=== PATIENT | female | born 1965 | race Caucasian/White ===

== ENCOUNTER 2016-05-27 13:54 | Emergency (ER) | payer MEDICAID | END 2016-05-27 15:08 | disposition home or self-care (01) | DX: S63.502A Unspecified sprain of left wrist, initial encounter (principal); S60.222A Contusion of left hand, initial encounter; W19.XXXA Unspecified fall, initial encounter; Y93.51 Activity, roller skating (inline) and skateboarding; F17.200 Nicotine dependence, unspecified, uncomplicated ==

== ENCOUNTER 2016-06-12 12:52 | Outpatient (CLI) | payer MEDICAID | END 2016-06-12 12:53 | disposition home or self-care (01) | DX: Z12.31 Encounter for screening mammogram for malignant neoplasm of breast (principal); R92.8 Other abnormal and inconclusive findings on diagnostic imaging of breast; Z80.3 Family history of malignant neoplasm of breast ==

== ENCOUNTER 2016-07-04 13:04 | Outpatient (CLI) | payer MEDICAID | END 2016-07-04 13:05 | disposition home or self-care (01) | DX: N63 Unspecified lump in breast (principal) ==

== ENCOUNTER 2016-07-11 11:28 | Outpatient (CLI) | payer MEDICAID ==
[2016-07-11] MEDS ORDERED: BUPIVACAINE 0.5%-EPI 1:200000 PF 30 ML VIAL SUBQ ONE (15:01)
[2016-07-11] MEDS ORDERED: BUFFERED LIDOCAINE 10 ML SYRINGE IU ONE (15:01)
== END 2016-07-11 11:29 | disposition home or self-care (01) ==
DX: C50.211 Malignant neoplasm of upper-inner quadrant of right female breast (principal); Z17.0 Estrogen receptor positive status [ER+]

== ENCOUNTER 2016-08-08 12:56 | Outpatient (CLI) | payer MEDICAID ==
[2016-08-08] MEDS ORDERED: GADOBUTROL 10 MMOL/10 ML SYRINGE IV ONE (13:53)
--- NOTE | 2016-08-08 15:47 | MRI Report ---
MRI OF THE BILATERAL BREASTS WITH AND WITHOUT CONTRAST: 08/08/2016 CLINICAL INDICATION: A 51-year-old with recent diagnosis of right breast cancer, presurgical planning . TECHNIQUE: Using a dedicated breast coil, axial precontrast STIR, T1, dynamic postcontrast axial 3D i mages, axial 3D high resolution images, and postcontrast diffusion-weighted images were obtained. 7 m L of Gadavist was administered intravenously. Postprocessing with dynamic contrast enhancement analys is and multiplanar reformations were performed with Artsicle. FINDINGS: The breasts demonstrate minimal stippled background parenchymal enhancement. RIGHT BREAST: The biopsy-proven breast cancer in the right upper inner quadrant is seen. It demonstra maryana rapid enhancement with washout kinetics. The abnormal enhancing mass measures 1.4 x 0.9 x 1.1 cm. There is no evidence of skin, nipple, or chest wall involvement. LEFT BREAST: No abnormal enhancement or mass is appreciated in the left breast. The axillary lymph nodes appear morphologically normal bilaterally. IMPRESSION: BIOPSY-PROVEN RIGHT BREAST CANCER, WITHOUT EVIDENCE OF MULTIFOCAL OR MULTICENTRIC DISEAS E. NO EVIDENCE OF SKIN, NIPPLE, OR CHEST WALL INVOLVEMENT. RECOMMENDATION: CONTINUED SURGICAL MANAGEMENT. BIRADS CATEGORY 6-KNOWN MALIGNANCY. The patient has been instructed to obtain results from Dr. Rob in 5 business days. COMMENT: Breast MRI is a highly sensitive examination, and has a cancer detection threshold down to a pproximately 5 mm; however, it only has moderate specificity. Although breast MRI has a high negative predicted value, appropriate clinical and mammographic followup are always necessary. MRI may miss l ess angiogenic tumors; therefore, it should not be used to avoid a biopsy which is otherwise clinical ly indicated. Normal appearing lymph nodes may contain microscopic tumor. Due to prone positioning, t adriana described location of findings may differ from other modalities. JOB #: [id number] EXT JOB #:[id number]
== END 2016-08-08 12:57 | disposition home or self-care (01) ==
LOC: DI 12:56
PROVIDERS: ATTEND Surgery
DX: C50.211 Malignant neoplasm of upper-inner quadrant of right female breast (principal)
CPT/HCPCS: 77059; A9585

== ENCOUNTER 2016-09-10 08:24 | Day surgery (SDC) | payer MEDICAID ==
[~2016-09-10 08:24] MED LIST: ceFAZolin 2 GM/50 ML 50 ML IV ONE
[2016-09-10] MEDS ORDERED: LACTATED RINGERS 1,000 ML IV ONE (08:42)
[2016-09-10] MEDS ORDERED: NEOSTIGMINE 1 MG/1 ML 10 ML MDV IVP ONE (11:30)
[2016-09-10] MEDS ORDERED: ONDANSETRON 4 MG/2 ML VIAL IVP ONE (11:30)
[2016-09-10] MEDS ORDERED: PROPOFOL 200 MG/20 ML VIAL IVP ONE (11:30)
[2016-09-10] MEDS ORDERED: fentaNYL 100 MCG/2 ML VIAL IVP ONE (11:30)
[2016-09-10] MEDS ORDERED: ACETAMINOPHEN 1,000 MG/100 ML VIAL IV ONE (11:30)
[2016-09-10] MEDS ORDERED: DEXAMETHASONE 4 MG/ML VIAL IVP ONE (11:30)
[2016-09-10] MEDS ORDERED: LIDOCAINE-PF 2% 10 ML AMP SUBQ ONE (11:30)
[2016-09-10] MEDS ORDERED: MIDAZOLAM 2 MG/2 ML VIAL IVP ONE (11:30)
[2016-09-10] MEDS ORDERED: BUPIVACAINE 0.5% PF 30 ML VIAL SUBQ ONE ×2 (11:51)
--- NOTE | 2016-09-10 11:59 | Nuclear Medicine Report ---
RIGHT BREAST INJECTION FOR SENTINEL NODE: 09/10/2016 CLINICAL INDICATION: Right breast cancer. FINDINGS: A total of 1.3 mCi of technetium-99m filtered sulfur colloid in 4 mL buffered lidocaine wa s injected intradermally into the right areola. Anterior imaging demonstrates injection site activit y. No definite axillary uptake is seen. Findings discussed with Dr. Rob on 09/10/2016. IMPRESSION: SULFUR COLLOID INJECTED FOR SENTINEL LYMPH NODE IDENTIFICATION. NO DEFINITE AXILLARY AC TIVITY IS APPRECIATED ON ANTERIOR IMAGING. JOB #: [id number] EXT JOB #:[id number]
[2016-09-10] MEDS ORDERED: KETOROLAC 15 MG/ML VIAL ONE (13:04)
[2016-09-10] MEDS ORDERED: BUPIVACAINE 0.5%-EPI 1:200000 PF 30 ML VIAL SUBQ ONE ×2 (13:15)
[2016-09-10] MEDS: HYDROmorphone 1 MG/ML SYRINGE ONE ×2 (13:15→13:27)
[2016-09-10] MEDS ORDERED: BUFFERED LIDOCAINE 10 ML SYRINGE IU ONE ×2 (13:15)
[2016-09-10 14:14] VITALS: BP 110/63
--- NOTE | 2016-09-10 19:44 | Mammography Report ---
REVISED: THIS REPORT WAS ORIGINALLY SIGNED ON 09/11/2016 @ 0812. ORDERS LINKED ON 09/23/2016. MAMMOGRAPHICALLY GUIDED WIRE LOCALIZATION RIGHT BREAST MASS AND MARKER: 2016 CLINICAL INDICATION: Target nodule in the right upper-inner posterior breast, biopsy proven breast cancer. Informed consent was obtained. Using standard aseptic technique, both 1% buffered lidocaine and Sensorcaine were injected into the right breast for local anesthesia. Under mammographic guidance, a 5 cm Hawarden wire and needle were placed at the site of concern. Two mammographic views were obtained to confirm the position of the wire in relation to the target lesion. The wire was secured and the patient was sent to the operating room in stable condition. SPECIMEN RADIOGRAPH: A magnified view of the breast biopsy specimen demonstrates the mass, marker, and Hawarden wire are included in the specimen, with the mass epicenter at G4. Dr. Rob was informed by telephone. IMPRESSION: RIGHT MAMMOGRAPHICALLY GUIDED WIRE LOCALIZATION. PATHOLOGY RESULTS PENDING. JOB #: [id number] EXT JOB #: [id number] SUZAN
--- NOTE | 2016-09-11 02:36 | OPERATIVE REPORT ---
DATE OF SURGERY: 09/10/2016 00:00:00 TIME: 1300 hours. PREOPERATIVE DIAGNOSIS: Right breast cancer. POSTOPERATIVE DIAGNOSIS: Right breast cancer. PROCEDURE: Right lumpectomy with preoperative needle localization and right axillary sentinel lymph node biopsy. SURGEON: Paul Rob MD ANESTHESIA: Oscar Hastings CRNA (general via LMA) plus 30 mL of 0.5% Marcaine. COMPLICATIONS: None. ESTIMATED BLOOD LOSS: Less than 20 mL. FLUIDS: 1000 mL of crystalloid. SPECIMEN REMOVED: Right sentinel lymph node; and separately the right localized breast lesion marked with a short stitch superiorly, long stitch laterally, and a double stitch deep. DETAILS OF PROCEDURE: After informed consent was obtained detailing all the risks of infection, blee ding with all its risks including transfusion, nerve injury, and , the patient was brought to [facility] operative suite and placed supine on the operating room table. Preoperatively she had the radioact krystle tracer, as well as needle localization performed by Dr. Shaw. I reviewed the results with Dr. Shaw preoperatively. The wire localization went as expected and well. The injection of the radi otracer did not show activity in the axilla, per Dr. Shaw. With the patient on the operating room table, she received preoperative antibiotics for prophylaxis a gainst surgical infection. The patient had TEDs and Venodynes placed for prophylaxis against deep karlee ous thrombosis. General anesthesia via an LMA was induced by Oscar Hastings CRNA, and Oscar Hastings CRNA, provided anesthesia care for the entirety of the case. The patient was then prepped and draped in the usual standard manner, taking care to ensure that there no pressure points. At this point in time, a time-in was done that confirmed the patient's name, date of , medical r ecord number, allergies, medications, and that we had the personnel and equipment required to perform the procedure. We also confirmed the procedure to be performed, as well as all the safety procedure s that we had done preoperatively. With the agreement of everyone in the room, the operation was all owed to proceed. The patient's right chest wall was examined for radioactive activity starting at the nipple, and a br ief count was noted to be 23,000. Internal mammary counts were between 80 and 130, clavicular counts were between 80 and 160. After the nipple, the activity was highest in the right axilla. In the ar ea of the greatest activity, a transverse incision was made, and dissection was carried out down to t he area of greatest activity using continual monitoring to ensure that the dissection went as expecte d. The axillary tissue itself was unrevealing of any lymphatic tissue that I could see or palpate; h owever, it was the area of greatest activity, and a 10-second in vivo count came back at 19,225. Thi s area was excised using a combination of Metzenbaum scissors, as well as Bovie electrocautery. Once this was removed from the axilla, the axilla was then examined, and the highest count that could be obtained in the axilla with the excision was 200; most counts were between 80 and 120. The ex vivo 1 0-second count of this tissue revealed activity at 31,818. Again, I examined this tissue extensively and could not palpate or see any lymphatic tissue. As a result, one lymph node or many lymph nodes could have been excised in this tissue. Meticulous hemostasis was noted to be present. The subcutan eous tissues were approximated using 3-0 Vicryl in an interrupted fashion. The skin was approximated using 4-0 Monocryl in a running subcuticular fashion. Attention was then directed to the right breast. Again the wire had been checked by me in the presen ce of Dr. Shaw preoperatively. Gentle movement of the needle allowed me to plan the surgical inci everardo at the areolar-skin border on the superior aspect of the patient's nipple. A curvilinear incisi on was made there, and dissection was carried out down to the needle and wire using a combination of Metzenbaum scissors, as well as Bovie electrocautery. The needle was grasped with an Allis, and diss ection around this was commenced, attempting to get approximately a centimeter of tissue around the c entral portion of the needle tip. The needle was removed, leaving the wire in place. The excision w as completed. Meticulous hemostasis was obtained using Bovie electrocautery. The wound was copiousl y flushed using sterile water, and there was no blush with any blood or active bleeding. Again, the s ubcutaneous tissues were approximated using 3-0 Vicryl suture. Examination of the excision revealed the pectoralis major muscle on the posterior aspect and the subcutaneous skin on the anterior aspect. Once the subcutaneous tissues were approximated, the skin was approximated using a 4-0 Monocryl in a running subcuticular fashion. Both incision sites were injected using 0.5% Marcaine with the majorit y of it being placed in the breast. The skin was cleaned of its prep. Mastisol and Steri-Strips wer e applied, and the patient subsequently had the LMA removed and was taken to the recovery room in goo d and stable condition, having tolerated the procedure well. JOB #: [id number] EXT JOB #:[id number]
== END 2016-09-10 08:25 | disposition home or self-care (01) ==
LOC: SDS 08:24
PROVIDERS: ATTEND Surgery
PROC: C71L1ZZ Planar Nuclear Medicine Imaging of Upper Chest Lymphatics using Technetium 99m (Tc-99m) (ICD-10-PCS; 2016-09-10)
PROC: 0HBT0ZZ Excision of Right Breast, Open Approach (ICD-10-PCS; principal; 2016-09-10 11:30)
PROC: 07B50ZX Excision of Right Axillary Lymphatic, Open Approach, Diagnostic (ICD-10-PCS; 2016-09-10 11:30)
DX: D05.91 Unspecified type of carcinoma in situ of right breast (principal); F41.9 Anxiety disorder, unspecified; F43.10 Post-traumatic stress disorder, unspecified; F31.9 Bipolar disorder, unspecified; M19.90 Unspecified osteoarthritis, unspecified site; M51.36 Other intervertebral disc degeneration, lumbar region; F17.210 Nicotine dependence, cigarettes, uncomplicated; Z79.1 Long term (current) use of non-steroidal anti-inflammatories (NSAID); Z98.1 Arthrodesis status
CPT/HCPCS: 19281; 19301; 38500; 76098; 78195; A9541; J0131; J0690; J1170; J7120; 88307